=== PATIENT | female | born 1930 | race African-American/Black ===

== ENCOUNTER 2020-08-19 20:05 | Emergency (ER) | payer OTHER ==
[~2020-08-19] VITALS: Ht 167.6 cm; Wt 72.0 kg
[~2020-08-19 20:05] MED LIST: ASPI-785; CHLO25TA2; FAMO-38; HYDR100T26; ISOSORBIDE; LOSA100T3; NITR0.4T; ROSU20TA2
[2020-08-19 21:29] LABS: BASOPHILS % 0.2 % (0.0-2.0); HEMATOCRIT. 32.4 % (36.0-48.0); HEMOGLOBIN. 10.3 g/dL (12.0-16.0); MEAN CORPUSCULAR HEMOGLOBIN 23.4 pg (28.0-32.0); MEAN CORPUSCULAR VOLUME 73.6 fL (81.0-99.0); MEAN PLATELET VOLUME 8.5 fl (7.4-10.4); MONOCYTES % 13.3 % (2.0-8.0); NEUTROPHILS % 70.5 % (40.0-76.0); PLATELET 170 x1000/uL (130-400)
[2020-08-19 21:36] LABS: CHLORIDE 92 mEq/L (98-107)
[2020-08-19] MEDS ORDERED: METOPROLOL TARTRATE 5MG/5ML VIAL IV ONE (22:15)
[2020-08-20] MEDS ORDERED: ASPIRIN 325MG TABLET PO SCH (01:00)
[2020-08-20 02:27] VITALS: BP 123/56
== END 2020-08-20 03:36 | disposition short-term general hospital (02) ==
LOC: ER 20:05 → CANBEDREQ 08-20 04:24
DX: R55 Syncope and collapse (principal); I21.4 Non-ST elevation (NSTEMI) myocardial infarction; E87.2 Acidosis; I11.0 Hypertensive heart disease with heart failure; I50.9 Heart failure, unspecified; N28.9 Disorder of kidney and ureter, unspecified; Z88.0 Allergy status to penicillin; Z88.1 Allergy status to other antibiotic agents; Z88.6 Allergy status to analgesic agent; Z88.8 Allergy status to other drugs, medicaments and biological substances; Z95.0 Presence of cardiac pacemaker
CPT/HCPCS: 36415; 71045; 80053; 83605; 83880; 84484; 85025; 93005; 96374; 99285; J3490